=== PATIENT | male | born 1955 | race Caucasian/White ===

== ENCOUNTER → 2018-02-04 | Outpatient (CLI) | payer BC ==
--- NOTE | 2018-02-04 13:22 | CT ---
EXAMINATION TYPE: CT abdomen pelvis wo con DATE OF EXAM: 02/04/2018 COMPARISON: 10/05/2015 HISTORY: Abdominal wall mass CT DLP: 1726.00 mGycm Automated exposure control for dose reduction was used. TECHNIQUE: Helical acquisition of images was performed from the lung bases through the pelvis. FINDINGS: LUNG BASES: No consolidation identified.. LIVER/GB: Cholecystectomy changes. PANCREAS: No significant abnormality is seen. SPLEEN: No significant abnormality is seen. ADRENALS: Mild thickening of the left adrenal gland. KIDNEYS: Assessment for mass is nondiagnostic due to lack of contrast. No renal stone or hydronephros is. There is a exophytic hypodensity off the mid to upper pole left kidney measuring less than a cent imeter to small to characterize but slightly hyperdense. They represent a small hemorrhagic cyst. Ult rasound recommended. URINARY BLADDER: No significant abnormality is seen. ADENOPATHY: None visualized. OSSEOUS STRUCTURES: Multilevel degenerative changes are present in the thoracolumbar spine. BOWEL: Nonspecific bowel gas pattern. Changes of diverticulosis noted. There is no evidence of obstr uction. Previous surgery involving the bowel noted with OTHER: There is apparent previous surgery involving the anterior abdominal wall. There is to BE abnor mal attenuation extending to the right of midline overlying the area of marked palpable abnormality w ith skin thickening. This could represent postoperative scar. Cellulitis or edema also in the differe ntial diagnosis. IMPRESSION: 1. AREA OF PALPABLE ABNORMALITY CORRESPONDS TO UNDERLYING SOFT TISSUE EDEMA AND WITH A AREA OF LINEAR DENSITY AND ILL-DEFINED ADJACENT ATTENUATION. THIS COULD BE A POSTOPERATIVE SCAR. CORRELATE CLINICAL LY TO EXCLUDE CELLULITIS. THERE IS SKIN THICKENING IN THE REGION. 2. POSTSURGICAL CHANGE SUGGESTIVE OF PREVIOUS ANTERIOR ABDOMINAL WALL SURGERY. 3. EXTENSIVE SIGMOID AND LEFT COLONIC DIVERTICULOSIS. 4. HYPERDENSE EXOPHYTIC LEFT RENAL LESION INAPPROPRIATELY EVALUATED BY NONCONTRAST CT. RECOMMEND FOLL OW-UP ULTRASOUND. RETROSPECTIVELY STABLE SINCE 2016 AND LIKELY RELATED TO HEMORRHAGIC CYST.
== END | disposition home or self-care (01) ==
LOC: RADCTMAIN 12:36
PROVIDERS: ATTEND Surgery
DX: K57.30 Diverticulosis of large intestine without perforation or abscess without bleeding (principal); N28.9 Disorder of kidney and ureter, unspecified; R60.0 Localized edema; Z98.890 Other specified postprocedural states
CPT/HCPCS: 74176

== ENCOUNTER → 2018-02-15 | Outpatient (CLI) | payer BC ==
--- NOTE | 2018-02-15 11:12 | US ---
EXAMINATION TYPE: US abdomen limited DATE OF EXAM: 02/15/2018 COMPARISON: Prior CT 02/04/2018 CLINICAL HISTORY: Abdominal Wall Mass T81.4XXA. Patient has palpable area slightly right and superior to umbilicus. At palpable abnormality is a hypoechoic focus. Hypoechoic non vascular area with irregular borders measuring 1.2 x 0.4 x 1.3cm No definite abscess. IMPRESSION: Findings may agree related to previous instrumentation, scarring, hernia is not identifi ed with certainty. Correlate to exclude infection, phlegmon.
== END | disposition home or self-care (01) ==
LOC: RADUSWWP 10:04
PROVIDERS: ATTEND Surgery
DX: T81.4XXA Infection following a procedure, initial encounter (principal); R19.00 Intra-abdominal and pelvic swelling, mass and lump, unspecified site
CPT/HCPCS: 76705

== ENCOUNTER 2018-06-28 08:41 | Day surgery (SDC) | payer BC ==
[2018-06-28 08:53] VITALS: TEMP 97.5
[2018-06-28 10:46] VITALS: BP 127/71; PULSE 87; RESP 16
--- NOTE | 2018-06-28 11:49 | US ---
EXAMINATION TYPE: US biopsy abd/retroperi mass DATE OF EXAM: 06/28/2018 HISTORY: Abdominal wall mass. FINDINGS: Maximal barrier technique was utilized. The skin overlying a suitable path to the patient' s anterior abdominal wall mass was localized with ultrasound and the overlying skin prepped and drape d. Ultrasound was utilized with sterile technique. Lidocaine was used for local anesthesia. A skin yasmeen was made with a scalpel. An 18-gauge needle was advanced under direct ultrasound guidance and core specimen obtained of the mass, 2 additional passes were made using similar technique. Specimens submitted in formalin to Pathology. Following the procedure, hemostasis achieved and the patient is discharged in stable condition without complication. IMPRESSION:STATUS POST ULTRASOUND GUIDED CORE BIOPSY OF MASS, PATHOLOGY IS PENDING. THIS PROCEDURE I S PERFORMED BY THE UNDERSIGNED.
== END 2018-06-28 10:51 | disposition home or self-care (01) ==
LOC: RADPROMAIN 08:41
PROVIDERS: ATTEND Surgery
DX: K65.4 Sclerosing mesenteritis (principal)
CPT/HCPCS: 49180; 88305; 88341; 88342

== ENCOUNTER → 2018-07-16 | Outpatient (CLI) | payer BC ==
--- NOTE | 2018-07-16 12:15 | XR ---
EXAMINATION TYPE: XR Hip Complete LT DATE OF EXAM: 07/16/2018 COMPARISON: None HISTORY: Pain, fall TECHNIQUE: 2 view left hip FINDINGS: Femoral head articulate with the acetabulum. Joint space is preserved. No acute fractures a re evident. IMPRESSION: 1. Normal 2 view right hip
--- NOTE | 2018-07-16 12:16 | XR ---
EXAMINATION TYPE: XR ribs RT w pa chest xray DATE OF EXAM: 07/16/2018 COMPARISON: None HISTORY: Fall, pain posterior right ribs TECHNIQUE: 2 view right ribs supplemented with a frontal chest. FINDINGS: No pneumothorax is evident. Heart and mediastinum are normal. Chest otherwise appears stabl e from 06/28/2015. Right ribs appear intact. No posterior right rib fractures are identified. IMPRESSION: 1. Normal right ribs
== END | disposition home or self-care (01) ==
LOC: RADXRYALE 11:46
PROVIDERS: ATTEND Physician Assistant Medical
DX: M25.552 Pain in left hip (principal); R07.89 Other chest pain
CPT/HCPCS: 73502

== ENCOUNTER → 2019-06-08 | Outpatient (CLI) | payer BC ==
--- NOTE | 2019-06-08 11:57 | XR ---
EXAMINATION TYPE: XR cervical spine comp DATE OF EXAM: 06/08/2019 TECHNIQUE: Frontal, lateral, oblique, swimmers, and open mouth view of the cervical spine are obtaine d. HISTORY: [id number] DDD,CERVICALGIA prior cervical fusion COMPARISON: 07/11/2015 lateral intraoperative view of the cervical spine FINDINGS: Cervical spine vertebral body heights are maintained of C2-C6. C7 is not imaged on the late ral view. No prevertebral soft tissue swelling. Anterior cervical fusion has been performed of C4-C6. Intervertebral disc spacers and osseous fusion at these levels. Vertebral bodies maintain normal ali gnment. Oblique images demonstrate mild neural foraminal narrowing at C6-C7 on the right and left. Alma ng apices are well aerated. IMPRESSION: 1. No acute fracture or malalignment is seen in the cervical spine. 2. Status post fusion of the cervical spine from C4 through C6 with mild degenerative disc disease at C6-C7 resulting in mild radiographic neural foraminal narrowing bilaterally at this level on the obl ique images.
== END | disposition home or self-care (01) ==
LOC: RADXRYALE 11:34
PROVIDERS: ATTEND Physician Assistant Medical
DX: M48.02 Spinal stenosis, cervical region (principal); M50.323 Other cervical disc degeneration at C6-C7 level; Z98.1 Arthrodesis status
CPT/HCPCS: 72050

== ENCOUNTER 2024-01-30 21:46 | Observation (INO) | payer BC, MEDICARE ==
[2024-01-30] MEDS: SODIUM CHLORIDE 0.9% 1,000 ML IV STA (22:41)
[2024-01-30] MEDS: ONDANSETRON 4 MG/2 ML VIAL IVP STA (22:46)
[2024-01-30] MEDS: ACETAMINOPHEN TAB 325 MG TAB PO STA (22:47)
[2024-01-30 22:55] LABS: Basophils % (A) 0 %; Eosinophils % (A) 0 %; HCT 41.2 % (39.0-53.0); HGB 14.1 gm/dL (13.0-17.5); Lymphocytes # (A) 1.1 k/uL (1.0-4.8); Lymphocytes % (A) 10 %; MCH 32.6 pg (25.0-35.0); MCHC 34.3 g/dL (31.0-37.0); MCV 94.9 fL (80.0-100.0); Mean Platelet Volume 11.7; Monocytes # (A) 0.4 k/uL (0-1.0); Monocytes % (A) 4 %; Neutrophils # (A) 8.7 k/uL (1.3-7.7); Neutrophils % (A) 84 %; RBC 4.34 m/uL (4.30-5.90); RDW 15.3 % (11.5-15.5); WBC 10.4 k/uL (3.8-10.6)
[2024-01-30 23:05] LABS: ALT 47 U/L (4-49); AST 76 U/L (17-59); African American GFR (CKD) 75 (>60 ml/min/1.73 sqM); Albumin 3.8 g/dL (3.5-5.0); Alkaline Phosphatase 137 U/L (38-126); Anion Gap 7 mmol/L; Blood Urea Nitrogen 18 mg/dL (9-20); Carbon Dioxide 22 mmol/L (22-30); Chloride 103 mmol/L (98-107); Glucose 122 mg/dL (74-99); Non-African American GFR(CKD) 65 (>60 ml/min/1.73 sqM); Potassium 3.6 mmol/L (3.5-5.1); Sodium 132 mmol/L (137-145); Total Bilirubin 1.1 mg/dL (0.2-1.3); Total Protein 6.6 g/dL (6.3-8.2)
[2024-01-30 23:33] LABS: INR 1.1 (<1.2); Partial Thromboplastin Time 27.6 sec (22.0-30.0); Prothrombin Time 12.2 sec (10.0-12.5)
[2024-01-30] MEDS: DILTIAZEM DRIP BOLUS FROM BAG 1 MG SOLN IV ONE (23:46)
[2024-01-30] MEDS: DILTIAZEM 125 MG in SODIUM CHLORIDE 0.9% 100 ML IV SCH (23:52)
[2024-01-30] MEDS: HEPARIN SODIUM 1,000 UN/ML (10ML VL) IV ONE (23:54)
[2024-01-30 23:56] LABS: Appearance,Urine Clear (Clear); Bacteria,Urine Rare /hpf; Bilirubin,Urine Negative (Negative); Blood,Urine Trace (Negative); Color,Urine Yellow; Glucose,Urine (UA) Negative (Negative); Ketones,Urine Negative (Negative); Leukocyte Esterase,Urine Small (Negative); Mucus,Urine Rare /hpf; Nitrite,Urine Negative (Negative); PH, Urine 5.5 (5.0-8.0); Protein,Urine 1+ (Negative); RBC,Urine 1 /hpf (0-5); Specific Gravity,Urine 1.019 (1.001-1.035); Urobilinogen,Urine <2.0 mg/dL (<2.0); WBC,Urine 17 /hpf (0-5)
[2024-01-30] MEDS: HEPARIN SOD,PORK IN 0.45% NACL 25,000 UNIT in 0.45% NACL 1 250ML.BAG IV SCH (23:56)
[2024-01-31 00:43] LABS: Anisocytosis (M) Present
--- NOTE | 2024-01-31 00:49 | XR ---
EXAM: XR Chest, 2 Views CLINICAL HISTORY: ITS.REASON XR Reason: Weakness TECHNIQUE: Frontal and lateral views of the chest. COMPARISON: No relevant prior studies available. FINDINGS: Lungs: Unremarkable. No consolidation. Pleural space: Unremarkable. No pneumothorax. Heart: Cardiomegaly. Mediastinum: Unremarkable. Normal mediastinal contour. Bones/joints: Unremarkable. No acute fracture. Upper abdomen: Elevated RIGHT hemidiaphragm. IMPRESSION: No acute findings in the chest.
[2024-01-31] MEDS ORDERED: IBUPROFEN 400 MG TAB PO PRN (02:07)
[2024-01-31] MEDS ORDERED: NALOXONE 0.4 MG/ML 1 ML VIAL IV PRN (02:07)
[2024-01-31] MEDS ORDERED: ONDANSETRON 4 MG/2 ML VIAL IVP PRN (02:07)
[2024-01-31] MEDS ORDERED: ACETAMINOPHEN TAB 325 MG TAB PO PRN (02:07)
--- NOTE | 2024-01-31 02:09 | ED ---
General Adult HPI - General Chief complaint: Urogenital Stated complaint: UTI weakness Time Seen by Provider: 01/30/24 22:19 Source: patient Mode of arrival: wheelchair Limitations: no limitations - History of Present Illness Initial comments: 68-year-old male presenting with chief complaint of generalized weakness. Patient notes that he has been having dysuria and hematuria last 4 days. His office and Cipro. He is still awaiting results from his urine culture. Today the patient was so weak that he was having difficulty getting out of his chair. Upon arrival he is febrile. He admits to some nausea with vomiting. No chest pain or difficulty breathing. No abdominal pain. - Related Data Home Medications Medication Instructions Recorded Confirmed Sucralfate [Carafate] 1.5 gm PO BID 06/27/15 06/28/18 allopurinoL [Zyloprim] 450 mg PO DAILY 06/27/15 06/28/18 raNITIdine HCL [Zantac] 150 mg PO BID 07/09/15 06/28/18 Aspirin 325 mg PO DAILY 10/05/15 06/28/18 Ferrous Sulfate [Iron (65 MG 325 mg PO DAILY 10/05/15 06/28/18 Elemental)] Hydrocodone/Acetaminophen 1 tab PO Q4-6H PRN 10/05/15 06/28/18 [Hydrocodone/Acetaminophen 10-300] Krill Oil 500 mg PO BID 10/05/15 06/28/18 Multivit-Min/FA/Lycopen/Lutein 1 each PO DAILY 10/05/15 06/28/18 [Centrum Silver Tablet] Niacin 100 mg PO BID 10/05/15 06/28/18 [place] 500 mg PO BID 10/05/15 06/28/18 Theophylline 12 Hour [Wagner-Dur] 900 mg PO BID 10/05/15 06/28/18 Zolpidem [Ambien] 5 mg PO HS PRN 10/05/15 06/28/18 Cyclobenzaprine [Flexeril] 10 mg PO TID 06/18/18 06/28/18 Dicyclomine [Bentyl] 10 mg PO DAILY PRN 06/18/18 06/28/18 Propranolol HCl [Inderal Xl] 120 mg PO DAILY 06/18/18 06/28/18 lisinopriL 40 mg PO DAILY 06/18/18 06/28/18 Allergies Allergy/AdvReac Type Severity Reaction Status Date / Time Iodinated Contrast Media Allergy Itching,RED Verified 06/28/18 08:53 [Iodinated Contrast Media - SKIN IV Dye] Review of Systems ROS Statement: Those systems with pertinent positive or pertinent negative responses have been documented in the HPI. ROS Other: All systems not noted in ROS Statement are negative. Past Medical History Past Medical History: Asthma, Cancer, Fibromyalgia, GERD/Reflux, Hypertension, Myocardial Infarction (ME) Additional Past Medical History / Comment(s): 07/11/15 Pt admitted to floor s/p anterior cervical decompression with fusion C4-5, C5-6 with NIM monitoring. Other HX: SKIN CANCER Last Myocardial Infarction Date:: UNKNOWN-per EKG/ stress test History of Any Multi-Drug Resistant Organisms: MRSA Date of last positivie culture/infection: 2009 MDRO Source:: ABDOMEN Past Surgical History: Appendectomy, Bowel Resection, Cholecystectomy, Hernia Repair, Orthopedic Surgery Additional Past Surgical History / Comment(s): 07/11/15 Anterior cervical decompression with fusion C4-5, C5-6 with NIMS monitoring. Other SX: Appy x 2 (unable to locate with first surgery), LEFT ANKLE tendon and ligament repair, LEFT KNEE ARTHROSCOPIC once and open once, BOWEL RESECTION X3, LEFT WRIST X2 with pins being inserted then removed,RIGHT KNEE ARTHROSCOPIC X2,RIGHT SHOULDER rotator cuff repair,INCISIONAL HERNIA, neck surgery Past Anesthesia/Blood Transfusion Reactions: No Reported Reaction Additional Past Anesthesia/Blood Transfusion Reaction / Comment(s): Pt has never recieved blood. Past Psychological History: No Psychological Hx Reported Past Alcohol Use History: Occasional Past Drug Use History: None Reported - Past Family History Mother Family Medical History: Myocardial Infarction (ME) Additional Family Medical History / Comment(s): Mother of ME in her 70's. Father Family Medical History: Myocardial Infarction (ME) Additional Family Medical History / Comment(s): Father had multiple ME's. Father's family hx strong with ME's. Father in his 70's of alzheimers. General Exam Limitations: no limitations General appearance: alert, in no apparent distress Head exam: Present: atraumatic, normocephalic Eye exam: Present: normal appearance, EOMI Neck exam: Present: normal inspection. Absent: meningismus Respiratory exam: Present: normal lung sounds bilaterally. Absent: respiratory distress, wheezes, rales, rhonchi, stridor Cardiovascular Exam: Present: regular rate, normal rhythm, normal heart sounds. Absent: systolic murmur, diastolic murmur, rubs, gallop, clicks Neurological exam: Present: alert, oriented X3 Psychiatric exam: Present: normal affect, normal mood Skin exam: Present: warm, dry Course Vital Signs 01/30/24 01/30/24 01/30/24 21:52 23:00 23:37 Temperature 100.5 F H Pulse Rate 88 140 H 140 H Respiratory 18 18 Rate Blood Pressure 144/76 124/76 132/69 O2 Sat by Pulse 95 98 Oximetry 01/31/24 01/31/24 01:15 02:34 Temperature 98.5 F Pulse Rate 128 H 93 Respiratory 18 18 Rate Blood Pressure 125/56 130/70 O2 Sat by Pulse 96 96 Oximetry Medical Decision Making - Medical Decision Making Was pt. sent in by a medical professional or institution (, PA, SENIOR JAVA PROGRAMMER, urgent care, hospital, or [facility]...) When possible be specific @ -No Did you speak to anyone other than the patient for history (EMS, parent, family, police, friend...)? What history was obtained from this source @ -No Did you review nursing and triage notes (agree or disagree)? Why? @ -I reviewed and agree with nursing and triage notes Were old charts reviewed (outside hosp., previous admission, EMS record, old EKG, old radiological studies, urgent care reports/EKG's, [facility] records)? Report findings @ -No old charts were reviewed Differential Diagnosis (chest pain, altered mental status, abdominal pain women, abdominal pain men, vaginal bleeding, weakness, fever, dyspnea, syncope, headache, dizziness, GI bleed, back pain, seizure, CVA, palpatations, mental health, musculoskeletal)? @ -MDM Differential Weakness: Hypoglycemia, shock, sepsis, hyponatremia, anemia, infection, ME, ETOH, adverse medicine reaction, overdose, stroke. ... This is not meant to be an all- inclusive list EKG interpreted by me (3pts min.). @ -EKG shows atrial fibrillation with rapid ventricular response. Ventricular rate 149. QRS 105. QT 260. QTc 345. X-rays interpreted by me (1pt min.). @ -Chest x-ray shows no acute findings in the chest CT interpreted by me (1pt min.). @ -None done U/S interpreted by me (1pt. min.). @ -None done What testing was considered but not performed or refused? (CT, X-rays, U/S, labs)? Why? @ -None What meds were considered but not given or refused? Why? @ -None Did you discuss the management of the patient with other professionals (professionals i.e. DrClint, PA, SENIOR JAVA PROGRAMMER, lab, RT, psych nurse, geriatric social work professor, emergency planner, teacher, chairman and chief executive officer, pillowcase sewer)? Give summary @ -I spoke with Dr. Malhotra who accepted admission Was smoking cessation discussed for >3mins.? @ -No Was critical care preformed (if so, how long)? @ -No Were there social determinants of health that impacted care today? How? (Homelessness, low income, unemployed, alcoholism, drug addiction, transportation, low edu. Level, literacy, decrease access to med. care, snf, rehab)? @ -No Was there de-escalation of care discussed even if they declined (Discuss DNR or withdrawal of care, Hospice)? DNR status @ -No What co-morbidities impacted this encounter? (DM, HTN, Smoking, COPD, CAD, Cancer, CVA, ARF, Chemo, Hep., AIDS, mental health diagnosis, sleep apnea, morbid obesity)? @ -None Was patient admitted / discharged? Hospital course, mention meds given and route, prescriptions, significant lab abnormalities, going to OR and other [facility] info. @ -68-year-old male presenting with chief complaint of generalized weakness. Currently treated for UTI. History and physical exam are conducted. EKG reveals atrial fibrillation with rate in the 150s. The patient has no history of A-fib. He is not on any anticoagulation. The patient is given bolus 10 mg of Cardizem and started on rate of 10 mg/h. He is started on heparin. Urine shows 17 WBCs. Lab work shows no leukocytosis or anemia. He is negative for influenza, RSV, COVID. Chest x-ray shows no acute process. Patient's rate has improved to the low 100s. He is educated on today's findings. He will be admitted for new onset atrial fibrillation. He is agreeable with this plan. I discussed this case with my attending Dr. Gallagher Undiagnosed new problem with uncertain prognosis? @ -No Drug Therapy requiring intensive monitoring for toxicity (Heparin, Nitro, Insulin, Cardizem)? @ -No Were any procedures done? @ -No Diagnosis/symptom? @ -New onset atrial fibrillation Acute, or Chronic, or Acute on Chronic? @ -Acute Uncomplicated (without systemic symptoms) or Complicated (systemic symptoms)? @ -Complicated Side effects of treatment? @ -No Exacerbation, Progression, or Severe Exacerbation? @ -No Poses a threat to life or bodily function? How? (Chest pain, USA, ME, pneumonia, PE, COPD, DKA, ARF, appy, cholecystitis, CVA, Diverticulitis, Homicidal, Suic idal, threat to staff... and all critical care pts) @ -Yes - Lab Data Result diagrams: 01/30/24 22:45 01/30/24 22:45 Lab Results 01/30/24 01/30/24 01/30/24 Range/Units 22:45 22:45 22:45 WBC 10.4 (3.8-10.6) k/uL RBC 4.34 (4.30-5.90) m/uL Hgb 14.1 (13.0-17.5) gm/dL Hct 41.2 (39.0-53.0) % MCV 94.9 (80.0-100.0) fL MCH 32.6 (25.0-35.0) pg MCHC 34.3 (31.0-37.0) g/dL RDW 15.3 (11.5-15.5) % Plt Count (150-450) k/uL MPV 11.7 Neutrophils % 84 % Lymphocytes % 10 % Monocytes % 4 % Eosinophils % 0 % Basophils % 0 % Neutrophils # 8.7 H (1.3-7.7) k/uL Lymphocytes # 1.1 (1.0-4.8) k/uL Monocytes # 0.4 (0-1.0) k/uL Eosinophils # 0.0 (0-0.7) k/uL Basophils # 0.0 (0-0.2) k/uL Manual Slide Review Performed Anisocytosis (manual) Present PT 12.2 (10.0-12.5) sec INR 1.1 (<1.2) APTT 27.6 (22.0-30.0) sec Sodium 132 L (137-145) mmol/L Potassium 3.6 (3.5-5.1) mmol/L Chloride 103 (98-107) mmol/L Carbon Dioxide 22 (22-30) mmol/L Anion Gap 7 mmol/L BUN 18 (9-20) mg/dL Creatinine 1.15 (0.66-1.25) mg/dL Est GFR (CKD-EPI)AfAm 75 (>60 ml/min/1.73 sqM) Est GFR (CKD-EPI)NonAf 65 (>60 ml/min/1.73 sqM) Glucose 122 H (74-99) mg/dL Plasma Lactic Acid Jordon (0.7-2.0) mmol/L Calcium 9.0 (8.4-10.2) mg/dL Total Bilirubin 1.1 (0.2-1.3) mg/dL AST 76 H (17-59) U/L ALT 47 (4-49) U/L Alkaline Phosphatase 137 H (38-126) U/L Total Protein 6.6 (6.3-8.2) g/dL Albumin 3.8 (3.5-5.0) g/dL Urine Color Urine Appearance (Clear) Urine pH (5.0-8.0) Ur Specific [place] (1.001-1.035) Urine Protein (Negative) Urine Glucose (UA) (Negative) Urine Ketones (Negative) Urine Blood (Negative) Urine Nitrite (Negative) Urine Bilirubin (Negative) Urine Urobilinogen (<2.0) mg/dL Ur Leukocyte Esterase (Negative) Urine RBC (0-5) /hpf Urine WBC (0-5) /hpf Urine Bacteria (None) /hpf Urine Mucus (None) /hpf Influenza Type A (PCR) (Not Detectd) Influenza Type B (PCR) (Not Detectd) RSV (PCR) (Not Detectd) SARS-CoV-2 (PCR) (Not Detectd) 01/30/24 01/30/24 01/31/24 Range/Units 22:45 23:05 01:20 WBC (3.8-10.6) k/uL RBC (4.30-5.90) m/uL Hgb (13.0-17.5) gm/dL Hct (39.0-53.0) % MCV (80.0-100.0) fL MCH (25.0-35.0) pg MCHC (31.0-37.0) g/dL RDW (11.5-15.5) % Plt Count (150-450) k/uL MPV Neutrophils % % Lymphocytes % % Monocytes % % Eosinophils % % Basophils % % Neutrophils # (1.3-7.7) k/uL Lymphocytes # (1.0-4.8) k/uL Monocytes # (0-1.0) k/uL Eosinophils # (0-0.7) k/uL Basophils # (0-0.2) k/uL Manual Slide Review Anisocytosis (manual) PT (10.0-12.5) sec INR (<1.2) APTT (22.0-30.0) sec Sodium (137-145) mmol/L Potassium (3.5-5.1) mmol/L Chloride (98-107) mmol/L Carbon Dioxide (22-30) mmol/L Anion Gap mmol/L BUN (9-20) mg/dL Creatinine (0.66-1.25) mg/dL Est GFR (CKD-EPI)AfAm (>60 ml/min/1.73 sqM) Est GFR (CKD-EPI)NonAf (>60 ml/min/1.73 sqM) Glucose (74-99) mg/dL Plasma Lactic Acid Jordon 1.2 (0.7-2.0) mmol/L Calcium (8.4-10.2) mg/dL Total Bilirubin (0.2-1.3) mg/dL AST (17-59) U/L ALT (4-49) U/L Alkaline Phosphatase (38-126) U/L Total Protein (6.3-8.2) g/dL Albumin (3.5-5.0) g/dL Urine Color Yellow Urine Appearance Clear (Clear) Urine pH 5.5 (5.0-8.0) Ur Specific [place] 1.019 (1.001-1.035) Urine Protein 1+ H (Negative) Urine Glucose (UA) Negative (Negative) Urine Ketones Negative (Negative) Urine Blood Trace H (Negative) Urine Nitrite Negative (Negative) Urine Bilirubin Negative (Negative) Urine Urobilinogen <2.0 (<2.0) mg/dL Ur Leukocyte Esterase Small H (Negative) Urine RBC 1 (0-5) /hpf Urine WBC 17 H (0-5) /hpf Urine Bacteria Rare H (None) /hpf Urine Mucus Rare H (None) /hpf Influenza Type A (PCR) Not Detected (Not Detectd) Influenza Type B (PCR) Not Detected (Not Detectd) RSV (PCR) Not Detected (Not Detectd) SARS-CoV-2 (PCR) Not Detected (Not Detectd) Disposition Clinical Impression: New onset a-fib, UTI (urinary tract infection), Generalized weakness Disposition: ADMITTED IP TO THIS HOSP Condition: Fair Time of Disposition: 02:09
[2024-01-31] MEDS: SODIUM CHLORIDE 0.9% 1,000 ML IV SCH (02:27)
[2024-01-31] MEDS: cefTRIAXone IN SWFI 1,000 MG/10 ML SYRINGE IVP STA (02:28)
--- NOTE | 2024-01-31 03:27 | P.HPIM ---
History of Present Illness H&P Date: 01/31/24 Patient is a 68-year-old male with a PMH of CAD, hypertension, fibromyalgia, and asthma who presents to the emergency room with complaints of generalized weakness and urinary complaints. Patient reports that he initially developed dysuria, hematuria, and fevers this past Thursday and was subsequently seen at his PCPs office on Thursday where he was initiated on oral ciprofloxacin. The patient was however advised by his PCP to come to the emergency room if his condition worsened. Patient notes that he was developing progressive weakness to the point where he was unable to stand up from a chair. He also had mild nausea without vomiting. Does note that he continues to have dysuria and some hematuria despite being on antibiotics. Reported mild fevers at home. Denied chest discomfort, shortness of breath, abdominal pain, diarrhea. EKG in the emergency room revealed A-fib at 149 bpm with LVH and left anterior fascicular block as reviewed by me. Chest x-ray revealed no acute abnormali ties. Laboratory evaluation was remarkable for lactic acid 1.2, sodium 132, UA showing 17 WBCs, with a negative respiratory viral panel. The patient had a Tmax of 100.5 F in the emergency room. ED documentation reviewed and case discussed with ED provider. Review of systems: Pertinent positives and negatives as discussed in HPI, a complete review of systems was performed and all other systems are negative. Physical examination: Vital signs reviewed General: non toxic, no distress, appears at stated age, obese Derm: no unusual rashes/lesions, warm Head: atraumatic, normocephalic, symmetric Eyes: EOMI, no lid lag, anicteric sclera, pupils equal round reactive to light ENT: Nose and ears atraumatic Neck: No cervical lymphadenopathy, trachea midline, supple Mouth: no lip lesion, mucus membranes moist Cardiovascular: S1S2 reg, no murmur, positive dorsalis pedis pulse bilateral, no edema Lungs: CTA bilateral, no rhonchi, no rales, no accessory muscle use Abdominal: soft, nontender to palpation, no guarding Ext: muscle strength 5 out of 5 in all 4 extremities grossly, no gross muscle atrophy, no contractures, Neuro: CN II-XI grossly intact, no gross focal neuro deficits Psych: Alert, oriented, appropriate affect Assessment: A-fib, suspect secondary to this acute illness UTI Debility, likely due to above Hyponatremia Chronic conditions: CAD, hypertension, fibromyalgia, asthma Imaging: EKG in the emergency room revealed A-fib at 149 bpm with LVH and left anterior fascicular block as reviewed by me. Chest x-ray revealed no acute abnormalities. Data Review: Laboratory evaluation was remarkable for lactic acid 1.2, sodium 132, UA showing 17 WBCs, with a negative respiratory viral panel. The patient had a Tmax of 100.5 F in the emergency room. Plan: Continue patient on Cardizem and heparin infusion Cardiac monitoring Cardiology consult Continue patient on ceftriaxone and follow-up urine cultures PT consult Monitor BMP Continue with home medications DVT prophylaxis: Heparin infusion The patient is admitted with an anticipated less than 2 midnight stay for evaluation of afib CODE STATUS: Full Code Discussed with: Patient Anticipated discharge place: Home Past Medical History Past Medical History: Asthma, Cancer, Fibromyalgia, GERD/Reflux, Hypertension, Myocardial Infarction (CA) Additional Past Medical History / Comment(s): 07/11/15 Pt admitted to floor s/p anterior cervical decompression with fusion C4-5, C5-6 with NIM monitoring. Other HX: SKIN CANCER Last Myocardial Infarction Date:: UNKNOWN-per EKG/ stress test History of Any Multi-Drug Resistant Organisms: MRSA Date of last positivie culture/infection: 2009 MDRO Source:: ABDOMEN Past Surgical History: Appendectomy, Bowel Resection, Cholecystectomy, Hernia Repair, Orthopedic Surgery Additional Past Surgical History / Comment(s): 07/11/15 Anterior cervical decompression with fusion C4-5, C5-6 with NIMS monitoring. Other SX: Appy x 2 (unable to locate with first surgery), LEFT ANKLE tendon and ligament repair, LEFT KNEE ARTHROSCOPIC once and open once, BOWEL RESECTION X3, LEFT WRIST X2 with pins being inserted then removed,RIGHT KNEE ARTHROSCOPIC X2,RIGHT SHOULDER rotator cuff repair,INCISIONAL HERNIA, neck surgery Past Anesthesia/Blood Transfusion Reactions: No Reported Reaction Additional Past Anesthesia/Blood Transfusion Reaction / Comment(s): Pt has never recieved blood. Past Psychological History: No Psychological Hx Reported Past Alcohol Use History: Occasional Past Drug Use History: None Reported - Past Family History Mother Family Medical History: Myocardial Infarction (CA) Additional Family Medical History / Comment(s): Mother of CA in her 70's. Father Family Medical History: Myocardial Infarction (CA) Additional Family Medical History / Comment(s): Father had multiple CA's. Father's family hx strong with CA's. Father in his 70's of alzheimers. Medications and Allergies Home Medications Medication Instructions Recorded Confirmed Type Sucralfate [Carafate] 1.5 gm PO BID 06/27/15 06/28/18 History allopurinoL [Zyloprim] 450 mg PO DAILY 06/27/15 06/28/18 History raNITIdine HCL [Zantac] 150 mg PO BID 07/09/15 06/28/18 History Aspirin 325 mg PO DAILY 10/05/15 06/28/18 History Ferrous Sulfate [Iron (65 MG 325 mg PO DAILY 10/05/15 06/28/18 History Elemental)] Hydrocodone/Acetaminophen 1 tab PO Q4-6H PRN 10/05/15 06/28/18 History [Hydrocodone/Acetaminophen 10-300] Krill Oil 500 mg PO BID 10/05/15 06/28/18 History Multivit-Min/FA/Lycopen/Lutein 1 each PO DAILY 10/05/15 06/28/18 History [Centrum Silver Tablet] Niacin 100 mg PO BID 10/05/15 06/28/18 History Saw [place] 500 mg PO BID 10/05/15 06/28/18 History Theophylline 12 Hour [[place]] 900 mg PO BID 10/05/15 06/28/18 History Zolpidem [Ambien] 5 mg PO HS PRN 10/05/15 06/28/18 History Cyclobenzaprine [Flexeril] 10 mg PO TID 06/18/18 06/28/18 History Dicyclomine [Bentyl] 10 mg PO DAILY PRN 06/18/18 06/28/18 History Propranolol HCl [Inderal Xl] 120 mg PO DAILY 06/18/18 06/28/18 History lisinopriL 40 mg PO DAILY 06/18/18 06/28/18 History Allergies Allergy/AdvReac Type Severity Reaction Status Date / Time Iodinated Contrast Media Allergy Itching,RED Verified 06/28/18 08:53 [Iodinated Contrast Media - SKIN IV Dye] Physical Exam Vitals: Vital Signs Temp Pulse Resp BP Pulse Ox 01/31/24 02:34 93 18 130/70 96 01/31/24 01:15 98.5 F 128 H 18 125/56 96 01/30/24 23:37 140 H 18 132/69 98 01/30/24 23:00 140 H 124/76 01/30/24 21:52 100.5 F H 88 18 144/76 95 Intake and Output 01/30/24 01/30/24 01/31/24 14:59 22:59 06:59 Intake Total 19.084 Balance 19.084 Intake: Intake, IV Titration 19.084 Amount Diltiazem 125 mg In 19.084 Sodium Chloride 0.9% 100 ml @ 10 MG/HR 10 mls/hr IV .[id number] [facility] Rx#: [id number] Other: Weight 127.006 kg Results CBC & Chem 7: 01/30/24 22:45 01/30/24 22:45 Labs: Abnormal Lab Results - Last 24 Hours (Table) 01/30/24 01/30/24 01/30/24 Range/Units 22:45 22:45 23:05 Neutrophils # 8.7 H (1.3-7.7) k/uL Sodium 132 L (137-145) mmol/L Glucose 122 H (74-99) mg/dL AST 76 H (17-59) U/L Alkaline Phosphatase 137 H (38-126) U/L Urine Protein 1+ H (Negative) Urine Blood Trace H (Negative) Ur Leukocyte Esterase Small H (Negative) Urine WBC 17 H (0-5) /hpf Urine Bacteria Rare H (None) /hpf Urine Mucus Rare H (None) /hpf
[2024-01-31 05:59] LABS: Basophils % (A) 0 %; Eosinophils % (A) 0 %; HCT 46.6 % (39.0-53.0); HGB 14.6 gm/dL (13.0-17.5); Lymphocytes # (A) 1.4 k/uL (1.0-4.8); Lymphocytes % (A) 14 %; MCH 30.9 pg (25.0-35.0); MCHC 31.3 g/dL (31.0-37.0); MCV 98.8 fL (80.0-100.0); Macrocytosis Slight; Mean Platelet Volume 8.5; Monocytes # (A) 0.4 k/uL (0-1.0); Monocytes % (A) 3 %; Neutrophils # (A) 8.3 k/uL (1.3-7.7); Neutrophils % (A) 81 %; Platelet Count 193 k/uL (150-450); RBC 4.71 m/uL (4.30-5.90); WBC 10.3 k/uL (3.8-10.6)
[2024-01-31 06:09] LABS: African American GFR (CKD) 81 (>60 ml/min/1.73 sqM); Anion Gap 11 mmol/L; Blood Urea Nitrogen 16 mg/dL (9-20); Calcium 8.7 mg/dL (8.4-10.2); Carbon Dioxide 20 mmol/L (22-30); Chloride 105 mmol/L (98-107); Glucose 103 mg/dL (74-99); Non-African American GFR(CKD) 70 (>60 ml/min/1.73 sqM); Potassium 4.3 mmol/L (3.5-5.1); Sodium 136 mmol/L (137-145)
[2024-01-31 06:11] LABS: INR 1.1 (<1.2); Partial Thromboplastin Time 28.8 sec (22.0-30.0); Prothrombin Time 12.2 sec (10.0-12.5)
[2024-01-31] MEDS: HEPARIN SODIUM 1,000 UN/ML (10ML VL) IV PRN (07:36)
[2024-01-31] MEDS: PANTOPRAZOLE 40 MG/10 ML VIAL IVP SCH (08:55)
[2024-01-31] MEDS ORDERED: DICYCLOMINE 20 MG TAB PO PRN (13:11)
[2024-01-31] MEDS ORDERED: CYCLOBENZAPRINE 10 MG TAB PO PRN (13:11)
[2024-01-31] MEDS ORDERED: PROPRANOLOL HCL 120 MG PO SCH (13:15)
[2024-01-31] MEDS: ASPIRIN 81 MG PO SCH (13:35)
[2024-01-31] MEDS: CHOLECALCIFEROL 25 MCG (1000 IU) TABLET PO SCH (13:36)
[2024-01-31] MEDS: atenoloL 50 MG TAB PO SCH (13:36)
[2024-01-31] MEDS: MULTIVITAMINS, THERA 1 EACH TAB PO SCH (13:36)
[2024-01-31] MEDS: LOSARTAN 50 MG TAB PO SCH (13:36)
[2024-01-31] MEDS: FERROUS SULFATE 325 MG TAB PO SCH (13:36)
[2024-01-31] MEDS: allopurinoL 300 MG TAB PO SCH (13:36)
[2024-01-31] MEDS: NON FORMULARY DRUG (Vitamin B Complex [Vitamin B Complex] 1 EACH Capsule) PO SCH (13:39)
--- NOTE | 2024-01-31 13:42 | P.PN ---
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 He presented to the emergency department with a chief complaint of generalized weakness and fatigue accompanied by fevers, hematuria and dysuria x 5 days. He was evaluated by his PCP and was started on ciprofloxacin but after no improvement and continued fevers he came to the emergency department as directed by his primary care doctor for further evaluation. Upon arrival to the emergency department patient underwent evaluation. Vital signs upon arrival show blood pressure 144/76, heart rate 88, respiratory rate 18, temp 100.5 F, and SpO2 of 95% on room air. Shortly after arrival patient found to be significantly tachycardic with heart rate in 140s and an EKG was completed showing atrial fibrillation at 149 bpm with left ventricular hypertrophy. Chest x-ray then completed and is negative for acute cardiopulmonary process. Labs completed and reviewed. CBC unremarkable. Coagulation profile normal findings. BMP showing hyponatremia with sodium of 132 and glucose of 122 otherwise normal findings. Lactic acid 1.2. Liver profile showing elevated AST of 76 and ALT of 137. Urinalysis was positive for protein, blood, leukocytes, and only 17 WBCs. Influenza A, influenza B, RSV, and COVID PCR negative. Blood cultures were obtained. Urine culture sent to lab for analysis. Patient was started on IV antibiotics with Rocephin for treatment of UTI and concerns of sepsis with tachycardia and elevated temp and was started on anticoagulation with low intensity heparin infusion for new onset atrial fibrillation along with Cardizem bolus followed by infusion for rate control. Patient admitted under our services with consultation to cardiology. Physical exam: Patient seen and fully evaluated at the bedside this morning. Patient reports feeling uncomfortable and painful secondary to ER stretcher. He remains on Cardizem infusion. Arrangements made for patient to have hospital bed delivered while he is holding in the emergency department awaiting for bed on 3 S. Patient denies any other complaints at this time. Vital signs reviewed and stable. General: Nontoxic, no distress and appears stated age. Derm: Skin warm and dry, normal coloration for ethnicity. Head: Atraumatic, normocephalic and symmetric. Eyes: EOMs intact, no lid lag, and anicteric sclera Mouth: no lip lesions, mucus membranes moist Cardiovascular: Irregularly irregular with normal S1S2, no murmur, positive p osterior tibial pulses bilaterally, and cap refill < 2 seconds. Lungs: Respirations even, regular, and unlabored on room air. Lungs CTA bilaterally, no rhonchi, no rales, no wheezing, and no accessory muscle usage. Abdominal: soft, nontender to palpation, no guarding, no appreciable organomegaly Ext: ROM intact. No gross muscle atrophy, no edema, no contractures Neuro: Speech clear, face symmetrical and CN II-XII grossly intact with no noted focal neuro deficits Psych: Alert and oriented to person, place, time, and situation. Appropriate and pleasant affect. Assessment and Plan of Care: New onset atrial fibrillation with RVR Acute cystitis with hematuria Sepsis upon arrival, likely secondary to above Generalized weakness and fatigue, secondary to above infection Mild hyponatremia Mildly elevated liver enzymes -Continue IV antibiotics with Rocephin 2 g daily pending urine culture and sensitivity reports. -Continue low intensity heparin infusion currently at 10 units/kg/h with close monitoring of PTT every 6 hours for goal therapeutic range between 44 to 79 seconds. Currently PTT subtherapeutic at 28.8, patient was given heparin bolus of 4000 units and infusion rate increased from 7.87 units/kg/h to 10.87 units/kg/h at this time. -Continue Cardizem infusion and titrate as indicated for goal ventricular rate 80-100 -Continue close monitoring of hemoglobin levels as patient does report hematuria and has been started on heparin infusion. -Continue with gentle IV fluid hydration 0.9% normal saline at 100 cc/h. -Order placed for bladder scan to be completed as needed to monitor for postvoid residual/retention along with strict monitoring of output. -Will obtain a TSH with reflex free T4 secondary to atrial fibrillation with RVR however new onset atrial fibrillation is likely secondary to acute infection. -Patient to remain on continuous telemetry monitoring. -Order placed for echocardiogram. -Will follow-up with blood culture and urine culture results. CAD with previous PR Hypertension -Patient to continue with cardiac medication regimen with aspirin 81 mg daily, atenolol 100 mg daily, losartan 100 mg daily, and propranolol 120 mg daily. Fibromyalgia Chronic neck and back pain -Patient placed on [place] 5/325 mg tablets every 4 hours for mild/moderate pain and to continue daily medication regimen with Flexeril 10 mg nightly and 10 mg twice daily as needed. Data and imaging reviewed: -EKG was completed showing atrial fibrillation at 149 bpm with left ventricular hypertrophy. -Repeat morning Labs completed and reviewed. CBC unremarkable. Coagulation profile showing a subtherapeutic PTT of 28.8. BMP showing hyponatremia with sodium of 136, bicarb of 20 and glucose of 103 otherwise normal findings. Liver profile showing elevated AST of 76 and ALT of 137. -Urinalysis was positive for protein, blood, leukocytes, and only 17 WBCs. Urine culture sent to lab for analysis CODE STATUS: Full code DVT prophylaxis: Heparin Anticipated discharge date: Clinical course to determine Anticipated discharge place: Clinical course to determine Patient was seen independently by Nurse Pracitioner. This document was prepared using [employer] dictation software. Please allow for errors in atomic spectroscopist, while rare they do occur. .Doyle Hathaway NP rendered care for this patient independently, reviewed the findings and plan as documented in the note above. I did not physically speak with or examine the patient on this date. Objective - Vital Signs Vital signs: Vital Signs Temp 98.4 F 01/31/24 06:00 Pulse 107 H 01/31/24 06:00 Resp 18 01/31/24 06:00 BP 146/61 01/31/24 06:00 Pulse Ox 96 01/31/24 06:00 FiO2 Intake & Output 01/30/24 01/31/24 01/31/24 18:59 06:59 18:59 Intake Total 19.084 76.129 Balance 19.084 76.129 Weight 127.006 kg Intake: Intake, IV Titration 19.084 76.129 Amount Diltiazem 125 mg In 19.084 Sodium Chloride 0.9% 100 ml @ 10 MG/HR 10 mls/hr IV .[id number] [facility] Rx#: [id number] Heparin Sod,Pork in 0.45% 76.129 NaCl 25,000 unit In 0.45 % NaCl 1 250ml.bag @ 7.87 UNITS/KG/HR 9.995 mls/hr IV .Q24H [facility] Rx#: [id number] - Labs CBC & Chem 7: 01/31/24 05:32 01/31/24 05:32 Labs: Abnormal Lab Results - Last 24 Hours (Table) 01/30/24 01/30/24 01/30/24 Range/Units 22:45 22:45 23:05 Neutrophils # 8.7 H (1.3-7.7) k/uL Sodium 132 L (137-145) mmol/L Carbon Dioxide (22-30) mmol/L Glucose 122 H (74-99) mg/dL AST 76 H (17-59) U/L Alkaline Phosphatase 137 H (38-126) U/L Urine Protein 1+ H (Negative) Urine Blood Trace H (Negative) Ur Leukocyte Esterase Small H (Negative) Urine WBC 17 H (0-5) /hpf Urine Bacteria Rare H (None) /hpf Urine Mucus Rare H (None) /hpf 01/31/24 01/31/24 Range/Units 05:32 05:32 Neutrophils # 8.3 H (1.3-7.7) k/uL Sodium 136 L (137-145) mmol/L Carbon Dioxide 20 L (22-30) mmol/L Glucose 103 H (74-99) mg/dL AST (17-59) U/L Alkaline Phosphatase (38-126) U/L Urine Protein (Negative) Urine Blood (Negative) Ur Leukocyte Esterase (Negative) Urine WBC (0-5) /hpf Urine Bacteria (None) /hpf Urine Mucus (None) /hpf
[2024-01-31 13:48] LABS: INR 1.2 (<1.2); Partial Thromboplastin Time 40.4 sec (22.0-30.0); Prothrombin Time 12.6 sec (10.0-12.5)
--- NOTE | 2024-01-31 20:38 | CONS ---
CONSULTATION HISTORY OF PRESENT ILLNESS: Tuan is a 68-year-old gentleman with history of complex and multiple medical problems including hypertension and COPD, who presented to hospital primarily with symptoms suggestive of urinary tract infection. He states that he was feeling generalized weakness and had urinary complaints. He had dysuria, hematuria, and fever, was seen at the primary care physician's office on Thursday and was started on ciprofloxacin. His initial EKG showed atrial fibrillation with rapid ventricular rate. He has sepsis, for which I have been consulted and subsequently converted to sinus rhythm. There is no prior history of coronary artery disease or congestive heart failure. PAST MEDICAL HISTORY: Significant for hypertension. MEDICATIONS: Medications at home included; 1. Flexeril. 2. Vitamin D. 3. Inderal LA 120 daily. 4. Zyloprim. 5. Carafate. 6. Cozaar 100 mg daily. 7. Cipro. ALLERGIES: IV dye. FAMILY HISTORY: Negative for premature coronary artery disease. SOCIAL HISTORY: Negative for smoking, EtOH abuse, or drug abuse. REVIEW OF SYSTEMS: 14 out of 14 review of systems has been performed. Pertinents are as documented. PHYSICAL EXAMINATION: GENERAL: Comfortable at rest. VITAL SIGNS: Stable. NECK: There is no jugular venous distention. Carotid upstroke is normal. There is no bruit. CHEST: Reveals good air entry bilaterally. HEART: Reveals first and second heart sounds. No gallop. No murmur. No rub. ABDOMEN: Soft, nontender. EXTREMITIES: Did not reveal any edema. Peripheral pulses are felt. LABORATORY DATA: Labs show that the hemoglobin is 14.6. Potassium is 4.3, creatinine is 1. TSH is normal at 0.9. ASSESSMENT: 1. Paroxysmal atrial fibrillation. 2. Urinary tract infection. PLAN: The patient is currently on IV heparin. We will switch him to Eliquis tomorrow if he is covered for it. Obtain a 2D echo and decide on further course of action. MMODL / IJN: [id number] /
[2024-01-31] MEDS: SUCRALFATE 1 GM TAB PO SCH (20:42)
[2024-01-31] MEDS: CYCLOBENZAPRINE 10 MG TAB PO SCH (20:43)
[2024-01-31] MEDS ORDERED: NON FORMULARY DRUG (Omega-3/Dha/Epa/Fish Oil [Fish Oil 1,000 Mg Softgel] 1 EACH Capsule) PO SCH (21:00)
[2024-01-31] MEDS ORDERED: NON FORMULARY DRUG (Saw Palmetto [Saw Palmetto] 500 MG Capsule) PO SCH (21:00)
[2024-01-31 21:36] LABS: INR 1.2 (<1.2); Partial Thromboplastin Time 55.5 sec (22.0-30.0); Prothrombin Time 12.6 sec (10.0-12.5)
[2024-02-01 08:57] LABS: INR 1.2 (<1.2); Partial Thromboplastin Time 50.6 sec (22.0-30.0); Prothrombin Time 12.5 sec (10.0-12.5)
[2024-02-01 09:02] LABS: ALT 77 U/L (4-49); AST 102 U/L (17-59); African American GFR (CKD) 88 (>60 ml/min/1.73 sqM); Albumin 2.9 g/dL (3.5-5.0); Alkaline Phosphatase 128 U/L (38-126); Anion Gap 8 mmol/L; Blood Urea Nitrogen 13 mg/dL (9-20); Calcium 8.5 mg/dL (8.4-10.2); Carbon Dioxide 20 mmol/L (22-30); Chloride 107 mmol/L (98-107); Glucose 97 mg/dL (74-99); HCT 39.4 % (39.0-53.0); HGB 12.5 gm/dL (13.0-17.5); MCH 31.1 pg (25.0-35.0); MCHC 31.8 g/dL (31.0-37.0); MCV 97.7 fL (80.0-100.0); Non-African American GFR(CKD) 76 (>60 ml/min/1.73 sqM); Platelet Count 122 k/uL (150-450); Potassium 3.4 mmol/L (3.5-5.1); RBC 4.03 m/uL (4.30-5.90); RDW 15.1 % (11.5-15.5); Sodium 135 mmol/L (137-145); Total Bilirubin 0.6 mg/dL (0.2-1.3); Total Protein 5.6 g/dL (6.3-8.2); WBC 7.1 k/uL (3.8-10.6)
[2024-02-01 09:18] LABS: Magnesium 1.9 mg/dL (1.6-2.3)
[2024-02-01] MEDS ORDERED: APIXABAN 5 MG TAB PO SCH (09:45)
[2024-02-01] MEDS: RIVAROXABAN 20 MG TAB PO STA (10:18)
[2024-02-01] MEDS: THEOPHYLLINE 24 HOUR 400 MG CAP.ER.24H PO SCH (10:18)
--- NOTE | 2024-02-01 12:22 | P.PN ---
Subjective HISTORY OF PRESENT ILLNESS: This is a 68-year-old male who was admitted to the hospital secondary to urinary tract infection with sepsis. Additionally the patient was found to be in A-fib with RVR. He does not have a history of atrial fibrillation. He was started on IV heparin. Patient has subsequently converted to sinus mechanism and is ma intaining sinus mechanism at the time of examination. He currently denies any chest pain or pressure. Denies any shortness of breath. Vital signs are stable. PHYSICAL EXAM: VITAL SIGNS: Reviewed. GENERAL: Well-developed in no acute distress. NECK: Supple. No JVD or thyromegaly LUNGS: Respirations even and unlabored. Lungs essentially clear to auscultation bilaterally. HEART: Regular rate and rhythm. S1 and S2 heard. EXTREMITIES: Normal range of motion. No clubbing or cyanosis. Peripheral pulses intact. No lower extremity edema ASSESSMENT: Urinary tract infection New onset paroxysmal atrial fibrillation, currently maintaining sinus mechanism Documented CAD, however no further details of this are known Hypertension COPD Morbid obesity: BMI 40.2 PLAN: Discontinue IV heparin Begin Xarelto 20 mg daily Continue additional cardiac medications 2D echo has been ordered. Await results. Patient may be discharged home this afternoon from a cardiac standpoint pending echocardiogram Patient to follow-up postdischarge with Dr. Jones Nurse practitioner note has been reviewed by physician. Signing provider agrees with the documented findings, assessment, and plan of care documented by BILLBOARD ERECTOR HELPER as a scribe. Objective - Vital Signs Vital signs: Vital Signs Temp 97.8 F 02/01/24 07:30 Pulse 81 02/01/24 07:30 Resp 18 02/01/24 07:30 BP 151/72 02/01/24 07:30 Pulse Ox 98 02/01/24 07:30 FiO2 Intake & Output 01/31/24 02/01/24 02/01/24 18:59 06:59 18:59 Intake Total 187.267 179.566 Balance 187.267 179.566 Intake: Intake, IV Titration 187.267 179.566 Amount Diltiazem 125 mg In 116.833 Sodium Chloride 0.9% 100 ml @ 10 MG/HR 10 mls/hr IV .[id number] [facility] Rx#: [id number] Heparin Sod,Pork in 0.45% 187.267 62.733 NaCl 25,000 unit In 0.45 % NaCl 1 250ml.bag @ 7.87 UNITS/KG/HR 9.995 mls/hr IV .Q24H [facility] Rx#: [id number] - Labs CBC & Chem 7: 02/01/24 08:08 02/01/24 08:08 Labs: Abnormal Lab Results - Last 24 Hours (Table) 01/31/24 01/31/24 02/01/24 Range/Units 13:20 20:46 08:08 RBC 4.03 L (4.30-5.90) m/uL Hgb 12.5 L (13.0-17.5) gm/dL Plt Count 122 L (150-450) k/uL PT 12.6 H 12.6 H (10.0-12.5) sec INR 1.2 H 1.2 H (<1.2) APTT 40.4 H 55.5 H (22.0-30.0) sec Sodium (137-145) mmol/L Potassium (3.5-5.1) mmol/L Carbon Dioxide (22-30) mmol/L AST (17-59) U/L ALT (4-49) U/L Alkaline Phosphatase (38-126) U/L Total Protein (6.3-8.2) g/dL Albumin (3.5-5.0) g/dL 02/01/24 02/01/24 Range/Units 08:08 08:08 RBC (4.30-5.90) m/uL Hgb (13.0-17.5) gm/dL Plt Count (150-450) k/uL PT (10.0-12.5) sec INR 1.2 H (<1.2) APTT 50.6 H (22.0-30.0) sec Sodium 135 L (137-145) mmol/L Potassium 3.4 L (3.5-5.1) mmol/L Carbon Dioxide 20 L (22-30) mmol/L AST 102 H (17-59) U/L ALT 77 H (4-49) U/L Alkaline Phosphatase 128 H (38-126) U/L Total Protein 5.6 L (6.3-8.2) g/dL Albumin 2.9 L (3.5-5.0) g/dL
--- NOTE | 2024-02-01 13:25 | P.PN ---
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 He presented to the emergency department with a chief complaint of generalized weakness and fatigue accompanied by fevers, hematuria and dysuria x 5 days. He was evaluated by his PCP and was started on ciprofloxacin but after no improvement and continued fevers he came to the emergency department as directed by his primary care doctor for further evaluation. Upon arrival to the emergency department patient underwent evaluation. Vital signs upon arrival show blood pressure 144/76, heart rate 88, respiratory rate 18, temp 100.5 F, and SpO2 of 95% on room air. Shortly after arrival patient found to be significantly tachycardic with heart rate in 140s and an EKG was completed showing atrial fibrillation at 149 bpm with left ventricular hypertrophy. Chest x-ray then completed and is negative for acute cardiopulmonary process. Labs completed and reviewed. CBC unremarkable. Coagulation profile normal findings. BMP showing hyponatremia with sodium of 132 and glucose of 122 otherwise normal findings. Lactic acid 1.2. Liver profile showing elevated AST of 76 and ALT of 137. Urinalysis was positive for protein, blood, leukocytes, and only 17 WBCs. Influenza A, influenza B, RSV, and COVID PCR negative. Blood cultures were obtained. Urine culture sent to lab for analysis. Patient was started on IV antibiotics with Rocephin for treatment of UTI and concerns of sepsis with tachycardia and elevated temp and was started on anticoagulation with low intensity heparin infusion for new onset atrial fibrillation along with Cardizem bolus followed by infusion for rate control. Patient admitted under our services with consultation to cardiology. Physical exam: Patient seen and fully evaluated at the bedside this morning. He has converted to normal sinus mechanism but continues to throw frequent PACs. He reports full resolution of hematuria and currently denies having any pain or complaints at this time. Vital signs reviewed and stable. General: Nontoxic, no distress and appears stated age. Derm: Skin warm and dry, normal coloration for ethnicity. Head: Atraumatic, normocephalic and symmetric. Eyes: EOMs intact, no lid lag, and anicteric sclera Mouth: no lip lesions, mucus membranes moist Cardiovascular: Irregularly irregular with normal S1S2, no murmur, positive posterior tibial pulses bilaterally, and cap refill < 2 seconds. Lungs: Respirations even, regular, and unlabored on room air. Lungs CTA bilaterally, no rhonchi, no rales, no wheezing, and no accessory muscle usage. Abdominal: soft, nontender to palpation, no guarding, no appreciable organomegaly Ext: ROM intact. No gross muscle atrophy, no edema, no contractures Neuro: Speech clear, face symmetrical and CN II-XII grossly intact with no noted focal neuro deficits Psych: Alert and oriented to person, place, time, and situation. Appropriate and pleasant affect. Assessment and Plan of Care: New onset atrial fibrillation with RVR, currently converted to normal sinus mechanism with frequent PACs Acute cystitis with hematuria Sepsis upon arrival, likely secondary to above Generalized weakness and fatigue, secondary to above infection Mild hyponatremia Transaminitis -Continue IV antibiotics with Rocephin 2 g daily pending urine culture and sensitivity reports. -Continue low intensity heparin infusion currently at 10 units/kg/h with close monitoring of PTT every 6 hours for goal therapeutic range between 44 to 79 seconds. Currently PTT therapeutic at 50.6 seconds. -Cardizem infusion was discontinued at 2:52 AM after patient converted to normal sinus mechanism. -Continue close monitoring of hemoglobin levels. Hemoglobin upon arrival was 14.6 and currently 12.5. Patient denies active bleeding and reports resolution of previously reported hematuria. -Continue with gentle IV fluid hydration 0.9% normal saline at 100 cc/h. -Continue bladder scan to be completed as needed to monitor for postvoid residual/retention along with strict monitoring of output. -TSH normal findings at 0.959. -Patient to remain on continuous telemetry monitoring. -Echocardiogram to be completed. -Will follow-up with blood culture and urine culture results. CAD with previous [place] Hypertension -Patient to continue with cardiac medication regimen with aspirin 81 mg daily, atenolol 100 mg daily, losartan 100 mg daily, and propranolol 120 mg daily. Fibromyalgia Chronic neck and back pain -Patient placed on [place] 5/325 mg tablets every 4 hours for mild/moderate pain and to continue daily medication regimen with Flexeril 10 mg nightly and 10 mg twice daily as needed. Data and imaging reviewed: -Repeat EKG obtained showing normal sinus rhythm with frequent PACs at 94 bpm. -Repeat morning Labs completed and reviewed. CBC showing acute blood loss anemia with hemoglobin of 12.5 from previous 14.6 and thrombocytopenia with platelet count of 122. Coagulation profile showing therapeutic INR 50.6. BMP showing sodium 135, potassium 3.4, and bicarb of 20. Liver profile showing transaminitis with AST of 102, ALT of 77, and alkaline phosphatase of 128. Urine culture and blood cultures pending. -Vital signs reviewed. Blood pressure 151/72, heart rate 81, respiratory rate 18, temp 97.8 F, and SpO2 of 98% on room air. CODE STATUS: Full code DVT prophylaxis: Heparin Anticipated discharge date: Clinical course to determine Anticipated discharge place: Clinical course to determine Patient was seen independently by Nurse Pracitioner. This document was prepared using [employer] dictation software. Please allow for er rors in senior solutions architect, while rare they do occur. .Doyle Hathaway NP rendered care for this patient independently, reviewed the findings and plan as documented in the note above. I did not physically speak with or examine the patient on this date. Objective - Vital Signs Vital signs: Vital Signs Temp 98.4 F 01/31/24 06:00 Pulse 78 02/01/24 05:35 Resp 16 02/01/24 06:30 BP 155/42 02/01/24 06:30 Pulse Ox 96 02/01/24 06:30 FiO2 Intake & Output 01/31/24 02/01/24 02/01/24 18:59 06:59 18:59 Intake Total 187.267 179.566 Balance 187.267 179.566 Intake: Intake, IV Titration 187.267 179.566 Amount Diltiazem 125 mg In 116.833 Sodium Chloride 0.9% 100 ml @ 10 MG/HR 10 mls/hr IV .[id number] KI Rx#: [id number] Heparin Sod,Pork in 0.45% 187.267 62.733 NaCl 25,000 unit In 0.45 % NaCl 1 250ml.bag @ 7.87 UNITS/KG/HR 9.995 mls/hr IV .Q24H KI Rx#: [id number] - Labs CBC & Chem 7: 02/01/24 08:08 02/01/24 08:08 Labs: Abnormal Lab Results - Last 24 Hours (Table) 01/31/24 01/31/24 Range/Units 13:20 20:46 PT 12.6 H 12.6 H (10.0-12.5) sec INR 1.2 H 1.2 H (<1.2) APTT 40.4 H 55.5 H (22.0-30.0) sec
[2024-02-01] MEDS: POTASSIUM CHLORIDE ER 20 MEQ TAB.ER PO STA (13:45)
--- NOTE | 2024-02-01 19:51 | CA ---
Transthoracic Echo Report Name: Tuan Ace Age: 68 Gender: M : 1955 Exam Date: 02/01/2024 13:50 Exam Location: [facility] Ht (in): 70 Wt (lb): 280 Ordering Physician: Doyle Hathaway Attending/Referring Phys: Commercial Sales Director Maliha Webber RDCS Procedure CPT: Indications: new onset atrial fib Cardiac Hx: Technical Quality: Poor Contrast 1: Definity Total Dose (mL): 2 Contrast 2: Total Dose (mL): MEASUREMENTS (Male / Female) Normal Values 2D ECHO LV Diastolic Diameter PLAX 5.5 cm 4.2 - 5.9 / 3.9 - 5.3 cm LV Systolic Diameter PLAX 3.8 cm IVS Diastolic Thickness 1.2 cm 0.6 - 1.0 / 0.6 - 0.9 cm LVPW Diastolic Thickness 1.4 cm 0.6 - 1.0 / 0.6 - 0.9 cm LV Relative Wall Thickness 0.5 RV Internal Dim ED PLAX 1.4 cm LA Systolic Diameter LX 4.3 cm 3.0 - 4.0 / 2.7 - 3.8 cm LV Diastolic Volume MOD BP 121.8 cm??? 67 - 155 / 56 - 104 cm??? LV Systolic Volume MOD BP 61.0 cm??? 22 - 58 / 19 - 49 cm??? LV Ejection Fraction MOD BP 49.9 % >= 55 % LV Cardiac Index MOD BP 1756.2 cm???/min???m??? LV Diastolic Volume MOD 4C 148.5 cm??? LV Systolic Volume MOD 4C 59.7 cm??? LV Ejection Fraction MOD 4C 59.8 % LV Cardiac Index MOD 4C 2567.5 cm???/min???m??? LV Diastolic Length 4C 8.1 cm LV Systolic Length 4C 6.5 cm LV Diastolic Volume MOD 2C 99.5 cm??? LV Systolic Volume MOD 2C 57.3 cm??? LV Ejection Fraction MOD 2C 42.4 % LV Cardiac Index MOD 2C 1221.1 cm???/min???m??? LV Diastolic Length 2C 8.0 cm LV Systolic Length 2C 7.2 cm LA Volume 64.9 cm??? 18 - 58 / 22 - 52 cm??? LA Volume Index 25.3 cm???/m??? 16 - 28 cm???/m??? M-MODE Aortic Root Diameter MM 3.7 cm LA Systolic Diameter MM 3.6 cm LA Ao Ratio MM 1.0 AV Cusp Separation MM 2.1 cm DOPPLER AV Peak Velocity 140.1 cm/s AV Peak Gradient 7.8 mmHg AI Peak Velocity 341.0 cm/s AI Peak Gradient 46.5 mmHg AI Pressure Half Time 732.9 ms MV Area PHT 2.8 cm??? Mitral E Point Velocity 96.0 cm/s Mitral A Point Velocity 103.8 cm/s Mitral E to A Ratio 0.9 MV Deceleration Time 272.0 ms TR Peak Velocity 199.1 cm/s TR Peak Gradient 15.8 mmHg Right Ventricular Systolic Press 20.8 mmHg FINDINGS Left Ventricle Left ventricular ejection fraction is estimated at 50-55%. No obvious regional wall motion abnormalities. Mildly increased septal wall thickness. Mildly increased left ventricular systolic volume. Mildly decreased left ventricular ejection fraction. Right Ventricle Normal right ventricular size and function. Right ventricular systolic pressure within normal limits. Right Atrium Mild right atrial dilatation. Left Atrium Mildly increased left atrial diameter. Mildly increased left atrial volume. Mitral Valve Structurally normal mitral valve. Mild mitral regurgitation. Aortic Valve Trileaflet aortic valve. [id number] aortic regurgitation. No aortic stenosis. Tricuspid Valve Structurally normal tricuspid valve. Trace to mild tricuspid regurgitation. Pulmonic Valve Structurally normal pulmonic valve. No pulmonic stenosis. No pulmonic regurgitation. Pericardium No pericardial or pleural effusion. Aorta Aorta at upper limits of normal. CONCLUSIONS Mildly impaired LV function with EF between 45 to 50% Mild mitral regurgitation Mild to moderate aortic regurgitation Normal pulmonary artery systolic pressure No pericardial effusion Previewed by: Dr. Sebastien Angel MD (Electronically Signed) Final Date: 01 February 2024 19:50
[2024-02-01] MEDS: HYDROcodone/APAP 5-325MG 1 EACH TAB PO PRN (19:55)
[2024-02-02 07:59] VITALS: BP 126/63; PULSE 70; RESP 16; TEMP 98.2
[2024-02-02] MEDS ORDERED: PANTOPRAZOLE 40 MG TABLET PO SCH (08:45)
[2024-02-02] MEDS: AREDS PO SCH (10:16)
--- NOTE | 2024-02-02 10:31 | P.DS ---
Providers Date of admission: 01/31/24 02:22 Expected date of discharge: 02/02/24 Attending physician: Jose Luis Colón MD Consults: 01/31/24 02:07 Consult Physician Urgent Consulting Provider: [facility] Consult Reason/Comments: new onset a. fib Do you want consulting provider notified?: Yes, Notify in am Primary care physician: [facility] Course: Discharge Diagnosis: New onset atrial fibrillation with RVR, currently converted to normal sinus mechanism with frequent PACs. Echocardiogram completed revealing an EF of 50 to 55% with mild mitral regurgitation and mild to moderate aortic regurgitation. Patient was evaluated by cardiology and cleared from cardiac perspective for discharge. Patient started on anticoagulation with Xarelto 20 mg daily and to continue atenolol 100 mg daily. Acute cystitis with hematuria. Urine culture negative and blood cultures x 2 showing no growth to date. However patient was on antibiotics prior to obtaining this culture, patient received 3 doses of IV antibiotics with Rocephin. Patient instructed to complete previously prescribed antibiotics ciprofloxacin and follow-up outpatient with PCP in 1 to 2 days. Sepsis upon arrival, likely secondary to above. Resolved. Generalized weakness and fatigue, secondary to above infection. Resolved. Mild hyponatremia. Sodium stable on discharge at 135. Transaminitis. Mildly elevated liver enzymes, patient asymptomatic possibly reactive secondary to infection versus underlying alcohol use. CAD with previous [place]. Patient to continue with cardiac medication regimen with aspirin 81 mg daily, atenolol 100 mg daily, losartan 100 mg daily, and propranolol 120 mg daily. Hypertension. Patient to continue with cardiac medication regimen with aspirin 81 mg daily, atenolol 100 mg daily, losartan 100 mg daily, and propranolol 120 mg daily. Fibromyalgia. 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 He presented to the emergency department with a chief complaint of generalized weakness and fatigue accompanied by fevers, hematuria and dysuria x 5 days. He was evaluated by his PCP and was started on ciprofloxacin but after no improvement and continued fevers he came to the emergency department as directed by his primary care doctor for further evaluation. Upon arrival to the emergency department patient underwent evaluation. Vital signs upon arrival show blood pressure 144/76, heart rate 88, respiratory rate 18, temp 100.5 F, and SpO2 of 95% on room air. Shortly after arrival patient found to be significantly tachycardic with heart rate in 140s and an EKG was completed showing atrial fibrillation at 149 bpm with left ventricular hypertrophy. Chest x-ray then completed and is negative for acute cardiopulmonary process. Labs completed and reviewed. CBC unremarkable. Coagulation profile normal findings. BMP showing hyponatremia with sodium of 132 and glucose of 122 otherwise normal findings. Lactic acid 1.2. Liver profile showing elevated AST of 76 and ALT of 137. Urinalysis was positive for protein, blood, leukocytes, and only 17 WBCs. Influenza A, influenza B, RSV, and COVID PCR negative. Blood cultures were obtained. Urine culture sent to lab for analysis. Patient was started on IV antibiotics with Rocephin for treatment of UTI and concerns of sepsis with tachycardia and elevated temp and was started on anticoagulation with low intensity heparin infusion for new onset atrial fibrillation along with Cardizem bolus followed by infusion for rate control. Patient admitted under our services with consultation to cardiology. Patient converted back into normal sinus mechanism. He was weaned from heparin infusion and started on anticoagulation with Xarelto 20 mg daily. Cardiology evaluated. Echocardiogram completed revealing an EF of 50 to 55% with mild mitral regurgitation and mild to moderate aortic regurgitation. Cardiology clearing patient for cardiac perspective and recommending outpatient follow-up in their office in 1 to 2 weeks. Patient has had no further elevated temps since initial fever patient had upon arrival to our facility. Patient reports full resolution of fatigue, hematuria, and dysuria. Patient medically stable for discharge at this time. Patient discharged home on Protonix 40 mg daily in addition to new anticoagulant Xarelto and patient was instructed to complete previously prescribed antibiotic ciprofloxacin and follow-up outpatient with his PCP in 2 to 3 days. Physical exam: Vital signs reviewed and stable. General: Nontoxic, no distress and appears stated age. Derm: Skin warm and dry, normal coloration for ethnicity. Head: Atraumatic, normocephalic and symmetric. Eyes: EOMs intact, no lid lag, and anicteric sclera Mouth: no lip lesions, mucus membranes moist Cardiovascular: Regular rate and rhythm with normal S1S2, no murmur, positive posterior tibial pulses bilaterally, and cap refill < 2 seconds. Lungs: Respirations even, regular, and unlabored on room air. Lungs CTA bilaterally, no rhonchi, no rales, no wheezing, and no accessory muscle usage. Abdominal: soft, nontender to palpation, no guarding, no appreciable organomegaly Ext: ROM intact. No gross muscle atrophy, no edema, no contractures Neuro: Speech clear, face symmetrical and CN II-XII grossly intact with no noted focal neuro deficits Psych: Alert and oriented to person, place, time, and situation. Appropriate and pleasant affect. A total of 35 minutes of time were spent preparing this complex discharge summary. Pt was discharged on 02/02/2024 at 10:30 AM. Patient was seen independently by Nurse Practitioner. This document was prepared using [employer] dictation software. Please allow for errors in test engineering technician while rare they do occur. Doyle Hathaway NP rendered care for this patient independently, reviewed the findings and plan as documented in the note above. I did not physically speak with or examine the patient on this date. Patient Condition at Discharge: Stable Plan - Discharge Summary Discharge Rx Participant: No New Discharge Prescriptions: New Pantoprazole [Protonix] 40 mg PO DAILY 30 Days #30 tab Rivaroxaban [Xarelto] 20 mg PO W/SUPPER 30 Days #30 tab Continue Sucralfate [Carafate] 1.5 gm PO BID allopurinoL [Zyloprim] 450 mg PO DAILY [place] 500 mg PO BID Multivit-Min/FA/Lycopen/Lutein [Centrum Silver Tablet] 1 tab PO DAILY Ferrous Sulfate [Iron (65 MG Elemental)] 325 mg PO DAILY Hydrocodone/Acetaminophen [Hydrocodone/Acetaminophen 10-300] 1 tab PO Q4H PRN PRN Reason: Pain Theophylline 12 Hour [Wagner-Dur] 600 mg PO BID Cyclobenzaprine [Flexeril] 10 mg PO BID PRN PRN Reason: Muscle Spasm Vitamin B Complex 1 cap PO DAILY [place]-3/Dha/Epa/Fish Oil [Fish Oil 1,000 mg Softgel] 1 cap PO BID Cholecalciferol (Vitamin D3) [Vitamin D3 (50 Mcg = 2000 Iu)] 50 mcg PO DAILY Aspirin EC [Ecotrin Low Dose] 81 mg PO DAILY Ondansetron [Zofran] 4 mg PO DAILY PRN PRN Reason: Nausea And Vomiting atenoloL [Tenormin] 100 mg PO DAILY Losartan Potassium [Cozaar] 100 mg PO DAILY Ciprofloxacin HCl [Cipro] 500 mg PO BID Dicyclomine [Bentyl] 20 mg PO TID PRN PRN Reason: Gi Upset Cyclobenzaprine [Flexeril] 10 mg PO HS Ergocalciferol (Vitamin D2) [Drisdol (50,000 Iu)] 1,250 mcg PO SA Omeprazole 20 mg PO DAILY Vit C/E/Zn/Coppr/Lutein/Zeaxan [Preservision Areds 2 Softgel] 2 cap PO BID Discharge Medication List Sucralfate [Carafate] 1.5 gm PO BID 06/27/15 [History] allopurinoL [Zyloprim] 450 mg PO DAILY 06/27/15 [History] Ferrous Sulfate [Iron (65 MG Elemental)] 325 mg PO DAILY 10/05/15 [History] Hydrocodone/Acetaminophen [Hydrocodone/Acetaminophen 10-300] 1 tab PO Q4H PRN 10/05/15 [History] Multivit-Min/FA/Lycopen/Lutein [Centrum Silver Tablet] 1 tab PO DAILY 10/05/15 [History] Saw [place] 500 mg PO BID 10/05/15 [History] Theophylline 12 Hour [Wagner-Dur] 600 mg PO BID 10/05/15 [History] Cyclobenzaprine [Flexeril] 10 mg PO BID PRN 06/18/18 [History] Aspirin EC [Ecotrin Low Dose] 81 mg PO DAILY 01/31/24 [History] Cholecalciferol (Vitamin D3) [Vitamin D3 (50 Mcg = 2000 Iu)] 50 mcg PO DAILY 0 01/31/24 [History] Ciprofloxacin HCl [Cipro] 500 mg PO BID 01/31/24 [History] Cyclobenzaprine [Flexeril] 10 mg PO HS 01/31/24 [History] Dicyclomine [Bentyl] 20 mg PO TID PRN 01/31/24 [History] Ergocalciferol (Vitamin D2) [Drisdol (50,000 Iu)] 1,250 mcg PO SA 01/31/24 [History] Losartan Potassium [Cozaar] 100 mg PO DAILY 01/31/24 [History] [place]-3/Dha/Epa/Fish Oil [Fish Oil 1,000 mg Softgel] 1 cap PO BID 01/31/24 [History] Omeprazole 20 mg PO DAILY 01/31/24 [History] Ondansetron [Zofran] 4 mg PO DAILY PRN 01/31/24 [History] Vitamin B Complex 1 cap PO DAILY 01/31/24 [History] atenoloL [Tenormin] 100 mg PO DAILY 01/31/24 [History] Vit C/E/Zn/Coppr/Lutein/Zeaxan [Preservision Areds 2 Softgel] 2 cap PO BID 02/01/24 [History] Pantoprazole [Protonix] 40 mg PO DAILY 30 Days #30 tab 02/02/24 [Rx] Rivaroxaban [Xarelto] 20 mg PO W/SUPPER 30 Days #30 tab 02/02/24 [Rx] Follow up Appointment(s)/Referral(s): Augie Luna MD [STAFF PHYSICIAN] - 1 Week (office will call with appointment time) Mike Vargas DO [Primary Care Provider] - 02/05/24 2:20 pm Patient Instructions/Handouts: A-fib (Atrial Fibrillation) (DC), Urinary Tract Infection in Men (DC) Activity/Diet/Wound Care/Special Instructions: First month of Xarelto filled with free monthly coupon and is at [facility]. Activity: As tolerated. Take breaks as needed. Diet: Heart healthy and carb consistent diet. Avoid salts, or foods with hidden salts such as canned or boxed foods and frozen dinners. Extra salt makes your heart work harder and traps the fluid in your body for longer. Special Instructions: Take all of your medications as directed and remember to keep all of your doctor's appointments and follow-up as needed. You are also being discharged home on a blood thinner, Xarelto. This is very important to take daily as directed until otherwise advised by your support worker-Dr. Luna. Being that you are being placed on a blood thinner it is very important to watch for any signs of bleeding and notify your doctor immediately if you notice any bleeding. It is also important to remove any trip hazards such as rugs or loose extension cords from your home to prevent unnecessary falls and if you do experience a fall or head injury, it is extremely important to be evaluated by a medical provider immediately to ensure no internal bleeding. As we discussed at bedside, recommend completing course of ciprofloxacin as previously prescribed. Thank you for allowing us to participate in your care, it was truly a pleasure having you for our patient!!! . Discharge Disposition: HOME SELF-CARE
--- NOTE | 2024-02-02 11:42 | P.PN ---
Subjective Progress Note Date: 02/02/24 HISTORY OF PRESENT ILLNESS: This is a 68-year-old male who was admitted to the hospital secondary to urinary tract infection with sepsis. Additionally the patient was found to be in A-fib with RVR. He does not have a history of atrial fibrillation. He was started on IV heparin. Patient has subsequently converted to sinus mechanism and is maintaining sinus mechanism at the time of examination. He currently denies any chest pain or pressure. Denies any shortness of breath. Vital signs are stabl e. 02/01 Patient is seen today in follow-up on the [facility] floor. Patient has been started on Xarelto as of yesterday. Echocardiogram reveals EF of 45 to 50%, mild mitral regurgitation, mild to moderate aortic regurgitation, normal pulmonary artery systolic pressure. No pericardial effusion. Blood pressure 126/63, heart rate in the 70s, pulse ox 94% on room air. PHYSICAL EXAM: VITAL SIGNS: Reviewed. GENERAL: Well-developed in no acute distress. NECK: Supple. No JVD or thyromegaly LUNGS: Respirations even and unlabored. Lungs essentially clear to auscultation bilaterally. HEART: Regular rate and rhythm. S1 and S2 heard. EXTREMITIES: Normal range of motion. No clubbing or cyanosis. Peripheral pulses intact. No lower extremity edema ASSESSMENT: Urinary tract infection New onset paroxysmal atrial fibrillation, currently maintaining sinus mechanism Documented CAD, however no further details of this are known Hypertension COPD Morbid obesity: BMI 40.2 PLAN: Continue Xarelto 20 mg daily Continue additional cardiac medications Patient may be discharged home from a cardiac standpoint Patient to follow-up postdischarge with Dr. Jones Nurse practitioner note has been reviewed by physician. Signing provider agrees with the documented findings, assessment, and plan of care documented by [employer] as a scribe. Objective - Vital Signs Vital signs: Vital Signs Temp 98.2 F 02/02/24 07:06 Pulse 70 02/02/24 07:06 Resp 16 02/02/24 07:06 BP 126/63 02/02/24 07:06 Pulse Ox 94 L 02/02/24 07:06 FiO2 Intake & Output 02/01/24 02/02/24 02/02/24 18:59 06:59 18:59 Weight 127 kg Other: # Voids 3 - Labs CBC & Chem 7: 02/01/24 08:08 02/01/24 08:08 Labs: Abnormal Lab Results - Last 24 Hours (Table) 02/01/24 02/01/24 02/01/24 Range/Units 08:08 08:08 08:08 RBC 4.03 L (4.30-5.90) m/uL Hgb 12.5 L (13.0-17.5) gm/dL Plt Count 122 L (150-450) k/uL INR 1.2 H (<1.2) APTT 50.6 H (22.0-30.0) sec Sodium 135 L (137-145) mmol/L Potassium 3.4 L (3.5-5.1) mmol/L Carbon Dioxide 20 L (22-30) mmol/L AST 102 H (17-59) U/L ALT 77 H (4-49) U/L Alkaline Phosphatase 128 H (38-126) U/L Total Protein 5.6 L (6.3-8.2) g/dL Albumin 2.9 L (3.5-5.0) g/dL Microbiology - Last 24 Hours (Table) 01/31/24 01:50 Blood Culture - Preliminary Blood 01/31/24 02:13 Blood Culture - Preliminary Blood 01/30/24 23:05 Urine Culture - Final Urine,Voided
[2024-02-02] MEDS ORDERED: RIVAROXABAN 20 MG TAB PO SCH (17:30)
[2024-02-06] MEDS ORDERED: ERGOCALCIFEROL 1,250 MCG (50,000 IU) CAPSULE PO SCH (09:00)
== END 2024-02-02 12:03 | disposition home or self-care (01) ==
LOC: EC 21:46 → 3SCARD 01-31 02:22 → 4SSUR 02-01 17:17
PROVIDERS: ADMIT Internal Medicine; ATTEND Internal Medicine
DX: A41.9 Sepsis, unspecified organism (principal); N30.01 Acute cystitis with hematuria; I48.0 Paroxysmal atrial fibrillation; I44.4 Left anterior fascicular block; I08.0 Rheumatic disorders of both mitral and aortic valves; E87.1 Hypo-osmolality and hyponatremia; I49.1 Atrial premature depolarization; K21.9 Gastro-esophageal reflux disease without esophagitis; I11.9 Hypertensive heart disease without heart failure; J44.89 Other specified chronic obstructive pulmonary disease; R74.01 Elevation of levels of liver transaminase levels; D62 Acute posthemorrhagic anemia; D69.6 Thrombocytopenia, unspecified; I25.10 Atherosclerotic heart disease of native coronary artery without angina pectoris; I25.2 Old myocardial infarction; M79.7 Fibromyalgia; G89.29 Other chronic pain; M54.2 Cervicalgia; M54.9 Dorsalgia, unspecified; R74.8 Abnormal levels of other serum enzymes; E66.01 Morbid (severe) obesity due to excess calories; Z68.41 Body mass index [BMI] 40.0-44.9, adult; Z79.82 Long term (current) use of aspirin; Z91.041 Radiographic dye allergy status; Z79.899 Other long term (current) drug therapy; Z11.52 Encounter for screening for COVID-19; Z11.59 Encounter for screening for other viral diseases; Z87.19 Personal history of other diseases of the digestive system; Z98.1 Arthrodesis status
CPT/HCPCS: 96376 ×3; 96368 ×2; 96361 ×2; 96365; 96366 ×2; 96367; 96375 ×2; 99285; 36415; 93005; 93306; 97161; 80053 ×2; 80048; 84443; 83605; 83735; 85025 ×2; 85027; 85610 ×3; 85730 ×3; 81001; 87040; 87086; 87636; 71046; G0378 ×4; J2405; J0696 ×3; J1644 ×4; C9113 ×2

== ENCOUNTER → 2024-10-10 | Outpatient (CLI) | payer BC ==
--- NOTE | 2024-10-10 11:32 | XR ---
EXAMINATION TYPE: XR ankle complete RT, XR foot complete RT DATE OF EXAM: 10/10/2024 11:24 AM COMPARISON: None. CLINICAL INDICATION: Male, 69 years old with history of [id number] RT ANKLE PAIN, pain. With bruising and swelling. Injury last week. TECHNIQUE: Frontal, lateral and oblique images of the right ankle and foot are obtained. FINDINGS: There is acute/subacute nondisplaced spiral type fracture through the lateral malleolus. Medial malleolus is intact. Ankle mortise symmetry is preserved. No additional acute displaced fractu re in the right foot. Overlying soft tissue is unremarkable. IMPRESSION: There is acute/subacute nondisplaced spiral type fracture through the lateral malleolus. [facility], , 10/10/2024 11:29 AM
== END | disposition home or self-care (01) ==
LOC: RADXRYALE 11:00
PROVIDERS: ATTEND Physician Assistant Medical
DX: S82.64XA Nondisplaced fracture of lateral malleolus of right fibula, initial encounter for closed fracture (principal); M25.571 Pain in right ankle and joints of right foot